=== PATIENT | female | born 1970 | race Hispanic/Latino ===

== ENCOUNTER 2020-04-09 14:49 | Observation (INO) | payer SELFPAY ==
[2020-04-09 15:53] LABS: Absolute Lymphocytes (CBC) 1.8 K/uL (0.7-4.9); Basophils % 0.8 % (0-1.3); Hematocrit 33.3 % (36.0-45.0); Lymphocytes % 25.1 % (15.3-44.8); RBC Red Blood Cell Count 3.93 M/uL (3.86-4.86)
[2020-04-09 15:59] LABS: Potassium 3.6 mmol/L (3.5-5.1); Troponin (Emerg Dept Use Only) 0.02 ng/mL (0.0-0.045)
--- NOTE | 2020-04-09 16:42 | RAD REPORT ---
EXAM DESCRIPTION: CT - Chest For Pe Angio - 04/09/2020 4:31 pm CLINICAL HISTORY: sob COMPARISON: None. TECHNIQUE: Dynamically enhanced axial 3 mm thick images of the chest were obtained during administra tion of <100> mL Isovue 370 IV contrast. Coronal and oblique reconstruction images were generated and reviewed. Exam utilizes a protocol for optimal evaluation of pulmonary arterial tree. Maximum intensity projections 3D imaging was utilized All CT scans are performed using dose optimization technique as appropriate and may include automated exposure control or mA/KV adjustment according to patient size. FINDINGS: A pulmonary embolus is not seen. A thoracic aortic aneurysm is not noted. A pleural effusion is not seen. A pericardial effusion is not seen. A lung consolidation is not present. IMPRESSION: Negative for a pulmonary embolism.
--- NOTE | 2020-04-09 16:43 | RAD REPORT ---
EXAM DESCRIPTION: Gregg Single View04/09/2020 3:45 pm CLINICAL HISTORY: sob COMPARISON: none FINDINGS: The lungs appear clear of acute infiltrate. The heart is borderline enlarged IMPRESSION: No acute abnormalities displayed
--- NOTE | 2020-04-09 16:58 | EDPHYS ---
Physician Documentation [facility] Name: Ann Anderson Age: 49 yrs Sex: Female : 1970 Arrival Date: 04/09/2020 Time: 14:51 Bed 28 Private MD: ED Physician Jamir Ren HPI: 04/09 16:21 This 49 yrs old Female presents to ER via Ambulatory with complaints of rn Shortness Of Breath, Swelling All Over. 16:21 The patient has shortness of breath at rest, with light activity. Onset: The rn symptoms/episode began/occurred today. Duration: The symptoms are intermittent. The patient's shortness of breath is aggravated by exertion, is alleviated by nothing. Severity of symptoms: At their worst the symptoms were mild in the emergency department the symptoms are unchanged. The patient has not experienced similar symptoms in the past. The patient has not recently seen a physician. Reports swelling "all over", worse yesterday and better today without treatment. Reports feels sob, and with deep breath has pain to left back/thorax. No trauma. No hx of dvt/PE, no chest pain, no hx of liver or kidney failure. No fever or cough. No known sick contacts. . Historical: - Allergies: 15:05 PENICILLINS; ll1 - PMHx: 15:05 Hypothyroidism; ll1 - PSHx: 15:05 ; ll1 - Immunization history:: Flu vaccine is not up to date. - Social history:: Smoking status: Patient denies any tobacco usage or history of. - Family history:: not pertinent. - Hospitalizations: : No recent hospitalization is reported. ROS: 16:21 Constitutional: Negative for fever, chills, and weight loss, Eyes: Negative for injury, rn pain, redness, and discharge, Neck: Negative for injury, pain, and swelling, Cardiovascular: Negative for chest pain, palpitations Respiratory: Negative for wheezing Abdomen/GI: Negative for abdominal pain, nausea, vomiting, diarrhea, and constipation, Back: Negative for injury and pain, MS/Extremity: Negative for injury and deformity, Skin: Negative for injury, rash, and discoloration, Neuro: Negative for headache, weakness, numbness, tingling, and seizure. Exam: 16:21 Constitutional: This is a well developed, well nourished patient who is awake, alert, rn sitting upright, no acute distress Head/Face: Normocephalic, atraumatic. ENT: No stridor Cardiovascular: Regular rate and rhythm. No pulse deficits. Respiratory: No increased work of breathing, no retractions or nasal flaring. Abdomen/GI: soft, non-tender Back: No spinal tenderness. No costovertebral tenderness. Full range of motion. Skin: Warm, dry MS/ Extremity: Pulses equal, no cyanosis. Neurovascular intact. Full, normal range of motion. Equal circumference. Neuro: Awake and alert, GCS 15 Vital Signs: 15:05 BP 129 / 88; Pulse 66; Resp 17; Temp 98.3; Pulse Ox 100% ; Weight 58.06 kg; Height 4 ll1 ft. 4 in. (132.08 cm); Pain 4/10; 15:05 Body Mass Index 33.28 (58.06 kg, 132.08 cm) ll1 MDM: 15:08 Patient medically screened. rn 16:56 Differential diagnosis: Anxiety Reaction Myocardial Infarction Pneumothorax Psychogenic rn pulmonary edema, Pulmonary Embolism angina. Data reviewed: vital signs, nurses notes, lab test result(s), EKG, radiologic studies, plain films, and as a result, I will admit patient. Counseling: I had a detailed discussion with the patient and/or guardian regarding: the historical points, exam findings, and any diagnostic results supporting the discharge/admit diagnosis, lab results, radiology results, the need for further work-up and treatment in the hospital. Response to treatment: There is no appreciated change of the patient's symptoms at this time, and as a result, I will admit patient. Admission orders: after a detailed discussion of the patient's condition and case, the admit orders are written by me. ED course: Pt admitted to Dr. Hammonds for dyspnea and abnormal ECG, cxr clear, CT PE neg, afebrile. Pt states told in past that she had a problem with "blood vessel of the heart". . 04/09 15:18 Order name: BMP; Complete Time: 16: rn 04/09 15:18 Order name: CBC with Diff; Complete Time: 16: rn 04/09 15:18 Order name: NT PRO-BNP; Complete Time: 16: rn 04/09 15:18 Order name: Troponin (emerg Dept Use Only); Complete Time: 16:06 rn 04/09 15:18 Order name: Procalcitonin; Complete Time: 16:36 rn 04/09 16:54 Order name: TSH; Complete Time: 18:04 rn 04/09 16:54 Order name: T4 Free; Complete Time: 18:04 rn 04/09 17:15 Order name: Basic Metabolic Panel [facility] 04/09 17:15 Order name: Basic Metabolic Panel [facility] 04/09 17:15 Order name: CBC with Automated Diff [facility] 04/09 17:15 Order name: CBC with Automated Diff [facility] 04/09 17:15 Order name: Lipid Profile [facility] 04/09 17:15 Order name: Lipid Profile [facility] 04/09 15:18 Order name: XRAY CXR (1 view); Complete Time: 16:47 rn 04/09 15:18 Order name: EKG; Complete Time: 15:19 rn 04/09 15:18 Order name: Cardiac monitoring; Complete Time: 15:30 rn 04/09 15:18 Order name: EKG - Nurse/Tech; Complete Time: 15:30 rn 04/09 16:07 Order name: CT Chest For PE Angio; Complete Time: 16:47 rn 04/09 17:15 Order name: Heart Healthy [facility] 04/09 17:15 Order name: Echo with Doppler [facility] 04/09 17:15 Order name: EKG Electrocardiogram [facility] 04/09 17:15 Order name: EKG Electrocardiogram [facility] 04/09 17:15 Order name: Lipid Profile [facility] 04/09 17:15 Order name: Troponin I [facility] 04/09 17:15 Order name: Troponin I [facility] 04/09 17:15 Order name: Troponin I [facility] 04/09 18:01 Order name: SARS-COV-2 RT PCR; Complete Time: 18:04 [facility] 04/10 10:02 Order name: NM [facility] 04/09 15:18 Order name: IV Saline Lock; Complete Time: 15:30 rn 04/09 15:18 Order name: Labs collected and sent; Complete Time: 15:30 rn 04/09 15:18 Order name: O2 Per Protocol; Complete Time: 15:30 rn 04/09 15:18 Order name: O2 Sat Monitoring; Complete Time: 15:30 rn Administered Medications: 16:59 Drug: Aspirin Chewable Tablet 324 mg Route: PO; ss Disposition: 12/29/20 16:58 Hospitalization ordered by Andree Hammonds for Observation. Preliminary diagnosis are Dyspnea, unspecified, Abnormal electrocardiogram [ECG] [EKG]. - Bed requested for [facility] ER HOLD. - Status is Observation. em1 - Condition is Stable. - Problem is new. - Symptoms have improved. Signatures: Dispatcher [employer] EDWI Jamir Ren MD MD rn Jevon, Marlon em1 Toshia Woodall RN RN Erwin Noriega, SURFACE SUPERVISOR-C SURFACE SUPERVISOR-Cla1 Sheyla Quiñones Lynsay, RN RN ll1 Corrections: (The following items were deleted from the chart) 17:03 16:07 CORONAVIRUS+MR.LAB.BRZ ordered. [facility] 17:04 16:58 Hospitalization Ordered by Andree Hammonds MD for Observation. Preliminary eb diagnosis is Dyspnea, unspecified; Abnormal electrocardiogram [ECG] [EKG]. Bed requested for Telemetry/MedSurg (observation). Status is Observation. Condition is Stable. Problem is new. Symptoms have improved. rn 04/10 10:44 04/09 17:04 04/09/2020 16:58 Hospitalization Ordered by Andree Hammonds MD for em1 Observation. Preliminary diagnosis is Dyspnea, unspecified; Abnormal electrocardiogram [ECG] [EKG]. Bed requested for [facility] ER HOLD. Status is Observation. Condition is Stable. Problem is new. Symptoms have improved. eb
--- NOTE | 2020-04-09 16:58 | ER ---
Nurse's Notes [facility] Name: Ann Anderson Age: 49 yrs Sex: Female : 1970 Arrival Date: 04/09/2020 Time: 14:51 Bed 28 Private MD: Diagnosis: Dyspnea, unspecified;Abnormal electrocardiogram [ECG] [EKG] Presentation: 04/09 15:05 Chief complaint: Patient states: SOB, swelling all over, back pain with deep breathing, ll1 dizzy for 2 days. No fever or cough. Denies N/V/D. Coronavirus screen: Client denies travel out of the [place] in the last 14 days. difficulty breathing, fatigue, shortness of breath, Client presents with at least one sign or symptom that may indicate coronavirus-19. Standard/surgical mask placed on the client. Ebola Screen: Patient denies travel to an Ebola-affected area in the 21 days before illness onset. Initial Sepsis Screen: Does the patient meet any 2 criteria? No. Patient's initial sepsis screen is negative. Does the patient have a suspected source of infection? No. Patient's initial sepsis screen is negative. Risk Assessment: Do you want to hurt yourself or someone else? Patient reports no desire to harm self or others. Onset of symptoms was April 08, 2020. 15:05 Method Of Arrival: Ambulatory ll1 15:05 Acuity: IVON 3 ll1 Historical: - Allergies: 15:05 PENICILLINS; ll1 - PMHx: 15:05 Hypothyroidism; ll1 - PSHx: 15:05 ; ll1 - Immunization history:: Flu vaccine is not up to date. - Social history:: Smoking status: Patient denies any tobacco usage or history of. - Family history:: not pertinent. - Hospitalizations: : No recent hospitalization is reported. Screenin:31 Abuse screen: Denies threats or abuse. Denies injuries from another. Nutritional ss screening: No deficits noted. Tuberculosis screening: Never had TB. Fall Risk None identified. Assessment: 15:15 General: Appears in no apparent distress. comfortable, Behavior is calm, cooperative, ss Denies fever, feeling ill, fatigue, chills. Pain: Complains of pain in L chest wall Pain currently is 4 out of 10 on a pain scale. Quality of pain is described as aching. Neuro: Level of Consciousness is awake, alert, obeys commands, Oriented to person, place, time, situation, Speech is normal, Facial symmetry appears normal. Cardiovascular: Denies nausea, shortness of breath, syncope, Capillary refill < 3 seconds is brisk in bilateral fingers Patient's skin is warm and dry. Rhythm is sinus rhythm. Cardiovascular: Edema is 1+ to left ankle, left foot, right ankle and right foot. Respiratory: Airway is patent Respiratory effort is even, unlabored, Respiratory pattern is regular, symmetrical, Breath sounds are clear bilaterally. Denies cough, shortness of breath labored breathing, pain with respiration, pain with cough, pain with movement. GI: Abdomen is non-distended, Patient currently denies abdominal pain, diarrhea, nausea, vomiting. : No signs and/or symptoms were reported regarding the genitourinary system. Denies burning with urination, inability to void, urinary frequency. EENT: Nares are clear Oral mucosa is moist. Throat is clear. Derm: Skin is intact, is healthy with good turgor, Skin is pink, warm \T\ dry. normal. Musculoskeletal: Circulation, motion, and sensation intact. Range of motion: intact in all extremities. 16:26 Reassessment: Pt to CT at this time VIA stretcher. ss 17:00 Reassessment: Patient appears in no apparent distress at this time. Patient and/or ss family updated on plan of care and expected duration. Pain level reassessed. Patient is alert, oriented x 3, equal unlabored respirations, skin warm/dry/pink. Pt aware of admission status. Spoke with JOSLYN in Microbiology to run COVID-19 test now. Vital Signs: 15:05 BP 129 / 88; Pulse 66; Resp 17; Temp 98.3; Pulse Ox 100% ; Weight 58.06 kg; Height 4 ll1 ft. 4 in. (132.08 cm); Pain 4/10; 15:05 Body Mass Index 33.28 (58.06 kg, 132.08 cm) ll1 ED Course: 14:51 Patient arrived in ED. ag5 15:04 Arm band placed on Patient placed in an exam room, on a stretcher. ll1 15:07 Triage completed. ll1 15:08 Jamir Ren MD is Attending Physician. rn 15:30 Inserted saline lock: 20 gauge in left antecubital area, using aseptic technique. ss ,using aseptic technique. Insertion by Karolina Moore, project technician Blood collected. 15:31 Patient has correct armband on for positive identification. Placed in gown. Bed in low ss position. Call light in reach. cardiac monitor on. Pulse ox on. NIBP on. Warm blanket given. 15:32 Toshia Woodall, RN is Primary Nurse. ss 15:45 XRAY CXR (1 view) In Process Unspecified. EDMS 16:31 CT Chest For PE Angio In Process Unspecified. EDMS 16:58 Andree Hammonds MD is Hospitalizing Provider. rn Administered Medications: 16:59 Drug: Aspirin Chewable Tablet 324 mg Route: PO; ss Outcome: 16:58 Decision to Hospitalize by Provider. rn 04/10 10:44 Patient left the ED. em1 Signatures: Dispatcher [employer] EDMS Jamir Ren MD MD rn Martinez, Eric em1 Toshia Woodall RN RN Zhanna Mccollum 5 James Staton RN RN ll1 Corrections: (The following items were deleted from the chart) 04/09 17:03 16:41 CORONAVIRUS+MRNicolásLABCORRIE drawn and sent. EDMS
[2020-04-09] MEDS ORDERED: ALPRAZOLAM 0.25 MG TABLET PO PRN (17:10)
[2020-04-09] MEDS ORDERED: MORPHINE 4 MG/ML SYR IV PRN (17:10)
[2020-04-09] MEDS ORDERED: ACETAMINOPHEN 500 MG TAB PO PRN (17:10)
[2020-04-09] MEDS ORDERED: ASPIRIN 81 MG CHEWABLE TABLET ONE (17:12)
[2020-04-09 17:50] VITALS: BMI 27.6
[2020-04-09] MEDS ORDERED: ENOXAPARIN 100 MG/ML SYR SQ SCH (18:00)
[2020-04-09] MEDS ORDERED: ENOXAPARIN 40 MG/0.4 ML SQ ONE (18:46)
[2020-04-09] MEDS: ENOXAPARIN 40 MG/0.4 ML SQ SCH (18:48)
[2020-04-09] MEDS ORDERED: INFLUENZA VACCINE (for 3y+) 0.5 ML DOSE IMVAC ONE (19:00)
[2020-04-09] MEDS: METOPROLOL TAR 25 MG TAB PO SCH (21:00)
[2020-04-09 22:02] VITALS: O2SAT 100
[2020-04-10 05:05] LABS: Absolute Lymphocytes (CBC) 2.3 K/uL (0.7-4.9); Basophils % 1.2 % (0-1.3); Hematocrit 33.5 % (36.0-45.0); Lymphocytes % 34.3 % (15.3-44.8); MPV 7.6 fL (7.6-11.3)
[2020-04-10 05:38] LABS: Potassium 3.8 mmol/L (3.5-5.1); Troponin I 0.02 ng/mL (0.0-0.045)
[2020-04-10 05:43] VITALS: TEMP 97.9
[2020-04-10] MEDS ORDERED: HYDROCORTISONE SUC 100 MG INJ IV ONE (05:59)
[2020-04-10] MEDS ORDERED: LEVOTHYROXINE SOD 0.125 MG TAB PO SCH (06:30)
--- NOTE | 2020-04-10 07:25 | P.HP ---
Certification for Inpatient Patient admitted to: Observation With expected LOS: <2 Midnights Patient will require the following post-hospital care: None Practitioner: I am a practitioner with admitting privileges, knowledge of patient current condition, hospital course, and medical plan of care. Services: Services provided to patient in accordance with Admission requirements found in Title 42 Section 412.3 of the Code of Federal Regulations Patient History Date of Service: 04/09/20 Reason for admission: Chest pain rule out acute coronary syndrome History of Present Illness: Patient is a 49-year-old female came to the hospital with chest discomfort. Pain was mainly on the right side of her chest and it did not radiate. She was not diaphoretic. She also notes some swelling throughout her body. Thyroid studies revealed hypothyroidism. Patient apparently has a septal defect from in the past. She was told about a 15 years ago but she really does not follow-up with a sander hand. She denies any NSAID use. She denies dyspnea on exertion. She denies orthopnea. She will be admitted to the hospital for further evaluation of the chest pain. Will rule her out for acute coronary syndrome. Allergies Penicillins Adverse Reaction (Verified 04/09/20 18:49) Itching/Hives/Rash Home Medications: Levothyroxine Sodium [Levothyroxine] 150 mcg PO DAILY 04/09/20 - Past Medical/Surgical History Has patient received pneumonia vaccine in the past: No -: Hypothyroidism -: - Family History Father Family History: Reviewed- Non-Contributory - Social History Smoking Status: Unknown if ever smoked Place of Residence: Home Review of Systems 10-point ROS is otherwise unremarkable Physical Examination - Vital Signs Temperature: 97.9 F Blood Pressure: 97/63 Pulse: 57 Respirations: 17 Pulse Ox (%): 98 - Physical Exam General: Alert, In no apparent distress, Oriented x3 HEENT: Atraumatic, PERRLA, Mucous membr. moist/pink, EOMI, Sclerae nonicteric Neck: Supple, 2+ carotid pulse no bruit, No LAD, Without JVD or thyroid abnormality Respiratory: Clear to auscultation bilaterally, Normal air movement Cardiovascular: Regular rate/rhythm, Normal S1 S2, No murmurs Gastrointestinal: Normal bowel sounds, Soft and benign, Non-distended, No tenderness Musculoskeletal: No clubbing, No swelling, No tenderness Integumentary: No rashes Neurological: Normal gait, Normal speech, Normal strength at 5/5 x4 extr, Normal tone, Sensation intact, Cranial nerves 3-12 intact, Normal affect Lymphatics: No axilla or inguinal lymphadenopathy - Studies Laboratory Data (last 24 hrs) 04/09/20 15:26: WBC 7.4, Hgb 11.0 L, Hct 33.3 L, Plt Count 396 04/09/20 15:26: Sodium 138, Potassium 3.6, BUN 12, Creatinine 0.84, Glucose 103 Assessment & Plan - Problems (Diagnosis) (1) Chest pain, rule out acute myocardial infarction Current Visit: Yes Status: Acute (2) Hypothyroidism Current Visit: Yes Status: Acute - Plan 1. Serial troponins and EKG 2. Cardiology consultation 3. Echocardiogram and stress test if cardiology is agreeable 4. Anti-platelet therapy, anti coagulation, beta-wyatt, statin, and O2 as needed 5. IV morphine for pain 6. Nitro p.r.n. 7. Check thyroid studies 8. GI and DVT prophylax Discharge Plan: Home Plan to discharge in: 24 Hours - Advance Directives Does patient have a Living Will: No Does patient have a Durable POA for Healthcare: No - Code Status/Comfort Care Code Status Assessed: Yes Code Status: Full Code Critical Care: No Time Spent Managing PTS Care (In Minutes): 40
--- NOTE | 2020-04-10 07:39 | P.DS ---
Discharge Date: 04/10/20 Disposition: ROUTINE DISCHARGE Discharge Condition: GOOD Reason for Admission: Chest pain rule out acute coronary syndrome - Problems (1) Chest pain, rule out acute myocardial infarction Current Visit: Yes Status: Acute (2) Hypothyroidism Current Visit: Yes Status: Acute Brief History of Present Illness: Patient is a 49-year-old female came to the hospital with chest discomfort. Pain was mainly on the right side of her chest and it did not radiate. She was not diaphoretic. She also notes some swelling throughout her body. Thyroid studies revealed hypothyroidism. Patient apparently has a septal defect from in the past. She was told about a 15 years ago but she really does not follow-up with a registered phlebotomist part time. She denies any NSAID use. She denies dyspnea on exertion. She denies orthopnea. She will be admitted to the hospital for further evaluation of the chest pain. Will rule her out for acute coronary syndrome. Vital Signs/Physical Exam: Temp Pulse Resp BP Pulse Ox 97.9 F 57 17 97/63 98 04/10/20 07:25 04/10/20 07:25 04/10/20 07:25 04/10/20 07:25 04/10/20 07:25 Laboratory Data at Discharge: WBC 6.6 K/uL (4.3-10.9) 04/10/20 04:46 Hgb 11.2 g/dL (12.0-15.0) L 04/10/20 04:46 Hct 33.5 % (36.0-45.0) L 04/10/20 04:46 Plt Count 400 K/uL (152-406) 04/10/20 04:46 Sodium 138 mmol/L (136-145) 04/10/20 04:46 Potassium 3.8 mmol/L (3.5-5.1) 04/10/20 04:46 BUN 11 mg/dL (7-18) 04/10/20 04:46 Creatinine 0.80 mg/dL (0.55-1.3) 04/10/20 04:46 Glucose 93 mg/dL (74-106) 04/10/20 04:46 Troponin I 0.02 ng/mL (0.0-0.045) 04/10/20 04:46 Triglycerides 113 mg/dL (<150) 04/10/20 04:46 Cholesterol 282 mg/dL (<200) H 04/10/20 04:46 HDL Cholesterol 97 mg/dL (40-60) H 04/10/20 04:46 Cholesterol/HDL Ratio 2.91 04/10/20 04:46 Home Medications: Aspirin [Aspirin EC 81 MG] 81 mg PO DAILY #30 tablet. 04/10/20 Levothyroxine [Synthroid*] 200 mcg PO [id number] #60 tab 04/10/20 New Medications: Aspirin [Aspirin EC 81 MG] 81 mg PO DAILY #30 tablet. Levothyroxine [Synthroid*] 200 mcg PO [id number] #60 tab Patient Discharge Instructions: OK TO DC IV AND DC HOME. FOLLOW-UP WITH PRIMARY CARE PROVIDER IN 1-2 WEEKS. FOLLOW-UP WITH CARDIOLOGY IN 1-2 WEEKS. RETURN TO THE ER IF symptoms worsen. CALL or TEXT DR. CARSON AT [phone] IF ANY QUESTIONS REGARDING HOSPITAL STAY. PLEASE CALL THE FLOOR AT [phone] IF ANY MEDICATION OR NURSING QUESTIONS. Diet: AHA Activity: Fall precautions Followup: NONE,NONE [Primary Care Provider] -
[2020-04-10] MEDS ORDERED: REGADENOSON 0.4 MG/5 ML SYR IV ONE (08:36)
[2020-04-10] MEDS: METOPROLOL TAR 25 MG TAB PO SCH (08:46)
[2020-04-10] MEDS: ENOXAPARIN 40 MG/0.4 ML SQ SCH (08:47)
[2020-04-10 08:48] VITALS: BP 99/65
[2020-04-10] MEDS ORDERED: HYDROCORTISONE SUC 100 MG INJ ONE (08:57)
[2020-04-10] MEDS ORDERED: ASPIRIN EC 81 MG TAB PO ONE (08:57)
[2020-04-10] MEDS ORDERED: ENOXAPARIN 40 MG/0.4 ML SQ ONE (08:58)
[2020-04-10] MEDS ORDERED: lisinopriL 10 MG TAB ONE (08:58)
[2020-04-10] MEDS ORDERED: METOPROLOL TAR 25 MG TAB ONE (08:58)
[2020-04-10] MEDS ORDERED: lisinopriL 10 MG TAB PO SCH (09:00)
[2020-04-10] MEDS ORDERED: ASPIRIN EC 81 MG TAB PO SCH (09:00)
--- NOTE | 2020-04-10 10:01 | RAD REPORT ---
EXAM DESCRIPTION: NM - Rest Stress Cardiac Imaging - 04/10/2020 9:41 am CLINICAL HISTORY: Chest pain. COMPARISON: None. TECHNIQUE: The patient was administered 10.2 millicuries of Tc 99m Sestamibi prior to resting SPECT imaging of the heart. The patient was then administered 30.4 of Tc 99m Sestamibi following exercise o r pharmacologic stress. Multiplanar SPECT images were reviewed. FINDINGS: There is uniformity of radiotracer uptake involving the entire left ventricular myocardiu m on rest and stress images. The left ventricular ejection fraction equals 65% IMPRESSION: Negative for a myocardial perfusion defect
--- NOTE | 2020-04-11 11:34 | TREADPHA ---
DX: CHEST PAIN Date of Study: 04/10/2020 Ht: 4' 9 " Wt: 128 lb 0 oz Consulting Physician: JANET MEDICATIONS: ASPIRIN, LOPRESSOR, PRINIVIL, LOVENOX HISTORY: 49 YEAR OLD FEMALE WITH COMPLAINTS OF CHEST PAIN. PHYSICIAL EXAMINATION: RESTING B.P.: 116/73 RESTING H.R.: 61 RESTING EKG: SINUS RHYTHM, NON ST PROTOCOL: LEXISCAN EXERCISE TIME: 3:30 B.P. AT PEAK STRESS: 136/73 IMPRESSION: SEE REPORT.
--- NOTE | 2020-04-12 16:17 | EKG ---
Test Date: 2020-04-09 Test Time: 15:23:22 Oyster Shipper: DHRUV MEASUREMENT RESULTS: Intervals: Rate: 58 AR: 142 QRSD: 68 QT: 418 QTc: 410 [place]: P: 27 AR: 142 QRS: 60 T: 259 INTERPRETIVE STATEMENTS: Sinus bradycardia ST & T wave abnormality, consider anterior ischemia Abnormal ECG No previous ECG available for comparison Electronically Signed On 04-12-20 16:10:16 PRACTICAL NURSE by Saeid Merchant
== END 2020-04-10 10:22 | disposition home or self-care (01) ==
LOC: ER 14:49 → ERHOLD 17:10
PROVIDERS: ADMIT Hospitalist; ATTEND Hospitalist
DX: R07.9 Chest pain, unspecified (principal); E03.9 Hypothyroidism, unspecified; Z20.828 Contact with and (suspected) exposure to other viral communicable diseases; R94.31 Abnormal electrocardiogram [ECG] [EKG]
CPT/HCPCS: 36415; 71045; 71275; 78452; 80048; 80061; 83880; 84145; 84439; 84443; 84484; 85025; 93005; 93017; 99284; A9500; J1650; J1720; J2785; Q9967; U0003